=== PATIENT | female | born 2000 | race Caucasian/White ===

== ENCOUNTER 2024-02-01 19:15 | Emergency (ER) | payer SELFPAY ==
[2024-02-01 19:33] VITALS: BP 150/73; PULSE 86; RESP 18; TEMP 36.5; O2SAT 100
--- NOTE | 2024-02-01 23:43 | PC.NURSE ---
Pt and family approached triage desk and states they are going to go home and sleep. Pt ambulated out of ED with steady gait in no obvious distress.
== END 2024-02-02 00:41 | disposition left against medical advice (07) ==
LOC: ANHED 23:51
DX: F10.239 Alcohol dependence with withdrawal, unspecified (principal)
CPT/HCPCS: 99199